=== PATIENT | female | born 1970 | race American Indian/Alaskan Native ===

== ENCOUNTER 2017-10-31 16:55 | Outpatient (CLI) | payer OTHER ==
--- NOTE | 2017-10-31 22:01 | XRay Report ---
FINAL REPORT EXAM: XR KNEE 1-2V RT HISTORY: KNEE PAIN TECHNIQUE: Frontal and lateral views of right knee. PRIORS: None. FINDINGS: Diffuse osteopenia and variable degenerative change in all 3 joint compartments, most severe in the medial joint space. No apparent fracture or dislocation. Soft tissues grossly unremarkable. IMPRESSION: 1. No acute osseous abnormality. 2. Degenerative changes.
--- NOTE | 2017-10-31 22:04 | XRay Report ---
FINAL REPORT EXAM: XR ANKLE 2V RT HISTORY: ANKLE PAIN TECHNIQUE: Frontal and lateral views of right ankle. PRIORS: None. FINDINGS: Diffuse osteopenia and degenerative change in the hindfoot. No apparent fracture or dislocation. Mild, generalized soft tissue edema. IMPRESSION: 1. No acute osseous abnormality. 2. Degenerative changes and soft tissue edema.
== END 2017-10-31 16:56 | disposition home or self-care (01) ==
LOC: XRAY 16:55
PROVIDERS: ATTEND Rehabilitation Practitioner
DX: M19.071 Primary osteoarthritis, right ankle and foot (principal); M17.11 Unilateral primary osteoarthritis, right knee; M85.871 Other specified disorders of bone density and structure, right ankle and foot